=== PATIENT | female | born 1940 | race African-American/Black ===

== ENCOUNTER 2017-01-04 12:56 | Emergency (ER) | payer MEDICARE, OTHER ==
[~2017-01-04] VITALS: Ht 152.4 cm; Wt 94.3 kg
[~2017-01-04 12:56] MED LIST: ACET500T68 PO; ALPR0.5T6 PO; ASPI1CPM PO; ATOR40TA59 PO; BUPR100T11 PO; DOCU-27 PO; DOCU100C5 PO; FAMO-63 PO; FAMO20TA5 PO; FURO-68 PO; FURO40TA4 PO; IBUP-1027 PO; LEVO500T8 PO; METO25TA4 PO; METO50TA2 PO; METR500T4 PO; OMEG-33 PO; OMEG1CAP38 PO; OXYC-323 PO; OXYC1TAB7 PO; PARO40TA3 PO; PARO40TA45 PO; PHEN28OI RC; POTA10TA12 PO; POTA10TA5 PO; RANO500T2 PO; SIME80TA14 PO; SIMV40TA3 PO; SODI30SP NS; mylanta
--- NOTE | 2017-01-04 13:40 | PHYS DOC ---
Past Medical History Past Medical History: A-Fib, Anemia, Anxiety, CAD, CHF, CVA, Depression, GERD, Glaucoma, Hypertension, Vascular Disease Additional Past Medical Histor: CHRONIC PAIN,DYSPHAGIA,APHASIA,RT SIDE PARALYSIS,OSTEOPOROSIS Past Surgical History: Hysterectomy, Other Alcohol Use: None Drug Use: None Adult General Chief Complaint Chief Complaint: MECHANICAL FALL HPI HPI Patient is a 76 year old female brought in by EMS for evaluation of head and neck pain status post fall. Reportedly patient was being transferred from the bed when the staff lost their burrer hand on her and she fell backwards striking her head neck and upper back. She is hurting in her head and neck but says her most significant pain is in her upper T-spine. She cannot speak effectively as she has expressive aphasia and right-sided hemiparesis from prior stroke. She is in no obvious distress with normal vital signs and a c-collar protecting her airway. Review of Systems Review of Systems UNABLE TO OBTAIN DUE TO MEDICAL CONDITION Allergies Allergies Allergies Coded Allergies Type Severity Reaction Last Updated Verified Penicillins Allergy Intermediate 01/09/14 Yes morphine Allergy Intermediate 01/09/14 Yes nitrofurantoin Allergy Intermediate itching, rash 03/12/15 Yes propoxyphene Allergy Intermediate 01/09/14 Yes I S O L A T I O N *CONTACT* Allergy Unknown 03/12/15 Yes Physical Exam Physical Exam Constitutional: Well developed, well nourished, no acute distress, non-toxic appearance. [] HENT: Normocephalic, atraumatic, bilateral external ears normal, oropharynx moist, no oral exudates, nose normal. [] Eyes: PERRLA, EOMI, conjunctiva normal, no discharge. [] Neck: Normal range of motion, + midline C and upper T spine tenderness, supple, no stridor. [] Cardiovascular:Heart rate regular rhythm, no murmur [] Lungs & Thorax: Bilateral breath sounds clear to auscultation [] Abdomen: Bowel sounds normal, soft, no tenderness, no masses, no pulsatile masses. [] Skin: Warm, dry, no erythema, no rash. [] Back: No tenderness, no CVA tenderness. [] Extremities: No tenderness, no cyanosis, no clubbing, ROM intact, no edema. [] Neurologic: Baseline neuro with right-sided hemiparesis and expressive aphasia. Current Patient Data Vital Signs Vital Signs Date Time Temp Pulse Resp B/P (MAP) Pulse Ox O2 Delivery O2 Flow Rate FiO2 01/04/17 13:13 98.6 62 20 160/80 (106) 96 Room Air 98.6 EKG EKG [] Radiology/Procedures Radiology/Procedures Exam performed: CT scan of the head and cervical spine without contrast. Date of Service: 01/04/17 Comparison:CT head and cervical spine from 03/20/11 Clinical History: Patient fell while transferring from the wheelchair to the floor Technique: Helical acquisitions are obtained from the foramen magnum to the vertex without intravenous administration of contrast. In addition helical acquisitions are obtained through the cervical spine. Sagittal and coronal reformatted images are obtained and reviewed. CT scan head findings: There is large area of encephalomalacia, related to large left MCA infarct. This is unchanged since previous study Mild age-related atrophy is seen. Normal rodriguez-white differentiation is maintained. There is no extra axial fluid collection, intraparenchymal hemorrhage or mass lesion. The visualized orbits, paranasal sinuses and the mastoid air cells are clear. The calvarium is intact. Impression: 1. No acute intracranial process detected. 2. Chronic left MCA infarct. End impression CT cervical spine findings: Slight reversal of cervical curvature. The vertebral body heights are maintained. There is narrowing of several intervertebral disc spaces with mild osteophytic spurring intravertebral disc spaces are maintained. There is no harriet or retrolisthesis. There are no fractures. No prevertebral soft tissue swelling is identified. No definite lymphadenopathy or masses are seen within the neck. The visualized thyroid and salivary glands appears preserved. Impression: 1. No acute abnormality seen in the CT scan cervical spine. 2. Spondylotic changes and multilevel disc degenerative changes are redemonstrated PQRS Compliance Statement: One or more of the following individualized dose reduction techniques were utilized for this examination: 1. Automated exposure control 2. Adjustment of the mA and/or kV according to patient size 3. Use of iterative reconstruction technique DICTATED and SIGNED BY: GISEL EMERSON MD DATE: 01/04/17 1348 Indication: Fall and back pain. Axial imaging through the thoracic spine was performed without contrast. Sagittal and coronal reformations were also performed. Curvature and alignment of the thoracic spine is normal. The vertebral body heights are maintained. No acute compression fracture is seen. The paraspinous tissues are unremarkable. Impression: No acute bony abnormality is detected. PQRS Compliance Statement: One or more of the following individualized dose reduction techniques were utilized for this examination: 1. Automated exposure control 2. Adjustment of the mA and/or kV according to patient size 3. Use of iterative reconstruction technique DICTATED and SIGNED BY: TYLER GILLILAND MD DATE: 01/04/17 1357 Course & Med Decision Making Course & Med Decision Making Patient with no obvious dramatic injuries and she is at her baseline such she' ll be discharged in stable condition with PCP follow-up in 1-2 days and come back to the ER sooner with any worsening symptoms. Dragon Disclaimer Dragon Disclaimer This electronic medical record was generated, in whole or in part, using a voice recognition dictation system. Departure Departure Impression: Primary Impression: Cervical strain, acute Additional Impression: CHI (closed head injury) Disposition: 01 HOME, SELF-CARE Condition: GOOD Referrals: KRIS WATKINS MD (PCP) Patient Instructions: Cervical Strain and Sprain with Rehab-SportsMed Problem Qualifiers Primary Impression: Cervical strain, acute Encounter type: initial encounter Qualified Codes: S16.1XXA - Strain of muscle, fascia and tendon at neck level, initial encounter JOSH GUAJARDO DO January 04, 2017 13:40
--- NOTE | 2017-01-04 13:55 | RAD ---
Indication: Fall and back pain. Axial imaging through the thoracic spine was performed without contrast. Sagittal and coronal reformations were also performed. Curvature and alignment of the thoracic spine is normal. The vertebral body heights are maintained. No acute compression fracture is seen. The paraspinous tissues are unremarkable. Impression: No acute bony abnormality is detected. PQRS Compliance Statement: One or more of the following individualized dose reduction techniques were utilized for this examination: 1. Automated exposure control 2. Adjustment of the mA and/or kV according to patient size 3. Use of iterative reconstruction technique
--- NOTE | 2017-01-04 13:58 | RAD ---
Exam performed: CT scan of the head and cervical spine without contrast. Date of Service: 01/04/17 Comparison:CT head and cervical spine from 03/20/11 Clinical History: Patient fell while transferring from the wheelchair to the floor Technique: Helical acquisitions are obtained from the foramen magnum to the vertex without intravenous administration of contrast. In addition helical acquisitions are obtained through the cervical spine. Sagittal and coronal reformatted images are obtained and reviewed. CT scan head findings: There is large area of encephalomalacia, related to large left MCA infarct. This is unchanged since previous study Mild age-related atrophy is seen. Normal rodriguez-white differentiation is maintained. There is no extra axial fluid collection, intraparenchymal hemorrhage or mass lesion. The visualized orbits, paranasal sinuses and the mastoid air cells are clear. The calvarium is intact. Impression: 1. No acute intracranial process detected. 2. Chronic left MCA infarct. End impression CT cervical spine findings: Slight reversal of cervical curvature. The vertebral body heights are maintained. There is narrowing of several intervertebral disc spaces with mild osteophytic spurring intravertebral disc spaces are maintained. There is no harriet or retrolisthesis. There are no fractures. No prevertebral soft tissue swelling is identified. No definite lymphadenopathy or masses are seen within the neck. The visualized thyroid and salivary glands appears preserved. Impression: 1. No acute abnormality seen in the CT scan cervical spine. 2. Spondylotic changes and multilevel disc degenerative changes are redemonstrated PQRS Compliance Statement: One or more of the following individualized dose reduction techniques were utilized for this examination: 1. Automated exposure control 2. Adjustment of the mA and/or kV according to patient size 3. Use of iterative reconstruction technique
--- NOTE | 2017-01-04 14:19 | RAD ---
Indication: Fall with bilateral hip pain. Time of exam 1411 hours. A single AP view of the pelvis was performed. The femoral acetabular alignment is normal bilaterally. Both femoral necks appear intact. The rami are intact. No fractures are seen. Impression: No acute bony abnormality is detected.
--- NOTE | 2017-01-04 14:20 | RAD ---
Exam performed: Bilateral view chest. History: Fall, neck pain. History of hypertension and atrial fibrillation, CHF. Date of service: 01/04/17. Comparison: Single view chest from 06/30/15. Single AP upright view chest findings: Mild cardiomegaly is stable. Pulmonary vascularity is unremarkable. Hazy opacity in the left lung base may be exaggerated due to overlying breast shadow. No focal infiltrates, effusion or pneumothorax is seen. Right shoulder arthroplasty. Impression: Stable mild cardiomegaly with ectatic tortuous aorta. No acute abnormality seen.
[2017-01-04 14:30] VITALS: BP 122/61
== END 2017-01-04 16:07 | disposition home or self-care (01) ==
LOC: ER 12:56
DX: S16.1XXA Strain of muscle, fascia and tendon at neck level, initial encounter (principal); S09.90XA Unspecified injury of head, initial encounter; I48.91 Unspecified atrial fibrillation; F41.9 Anxiety disorder, unspecified; I25.10 Atherosclerotic heart disease of native coronary artery without angina pectoris; I11.0 Hypertensive heart disease with heart failure; I50.9 Heart failure, unspecified; F32.9 Major depressive disorder, single episode, unspecified; K21.9 Gastro-esophageal reflux disease without esophagitis; H40.9 Unspecified glaucoma; I99.9 Unspecified disorder of circulatory system; G89.29 Other chronic pain; G81.91 Hemiplegia, unspecified affecting right dominant side; M81.0 Age-related osteoporosis without current pathological fracture; Z86.73 Personal history of transient ischemic attack (TIA), and cerebral infarction without residual deficits; Z91.041 Radiographic dye allergy status; Z88.8 Allergy status to other drugs, medicaments and biological substances; Z88.0 Allergy status to penicillin; Z88.5 Allergy status to narcotic agent; W01.198A Fall on same level from slipping, tripping and stumbling with subsequent striking against other object, initial encounter; Y93.89 Activity, other specified; Y92.89 Other specified places as the place of occurrence of the external cause; Y99.8 Other external cause status
CPT/HCPCS: 70450; 71010; 72125; 72128; 72170; 99284-25

== ENCOUNTER 2018-05-22 13:53 | Inpatient (IN) | payer MEDICARE, OTHER ==
[~2018-05-22] VITALS: Ht 157.5 cm; Wt 112.9 kg
[~2018-05-22 13:53] MED LIST changes: +DOCU-109 PO; -DOCU-27 PO; +DOCU100C28 PO; -DOCU100C5 PO; +LORA10TA3 PO; -METO50TA2 PO; +METO50TA6 PO; -METR500T4 PO; +METR500T8 PO; +PARO30TA3 PO; -PARO40TA45 PO; +PARO40TA61 PO; -POTA10TA5 PO; +WARF3TAB54 PO
--- NOTE | 2018-05-22 14:16 | EKG ---
[facility] [address] [place] [address] Test Date: 2018-05-22 Test Time: 14:11:28 Pat Name: MARILYN GEE Department: Room: Gender: F [employer]: TW : [id number] Requested By: JOHNNIE FONTANA Order Number: [id number] Reading MD: Nate Cardona Measurements Intervals [place] Rate: 73 P: MS: QRS: 64 QRSD: 80 T: 61 QT: 418 QTc: 464 Interpretive Statements ATRIAL FIBRILLATION. NONSPECIFIC ST-T WAVE CHANGES. Electronically Signed On 05-23-2018 15:21:58 CDT by Nate Cardona
[2018-05-22 14:46] LABS: BILIRUBIN,URINE NEGATIVE (NEG); CLARITY,URINE CLEAR; COLOR,URINE YELLOW; NITRITE,URINE NEGATIVE (NEG); PROTEIN,URINE NEGATIVE (NEG-TRACE); UROBILINOGEN,URINE 0.2 mg/dL (0.2 mg/dL)
--- NOTE | 2018-05-22 14:48 | RAD ---
Single view of the chest. 05/22/2018 2:17 PM Indication: CHEST PAIN AND SHORTNESS OF BREATH X TODAY Comparison: None available Findings: Mildly reduced lung volumes noted. There is borderline cardiomegaly.. No pneumothorax pleural effusion or focal infiltrate is identified. Aortic calcification noted. No acute osseous changes are seen. IMPRESSION: 1. Borderline cardiomegaly. 2. No acute cardiopulmonary process. Electronically signed by: Merrill Polo MD (05/22/2018 2:44 PM) [id number]
[2018-05-22 14:52] LABS: BACTERIA,URINE 0 /HPF (0-FEW); SQUAMOUS EPITHELIAL CELL,UR MOD /LPF; WBC,URINE OCC /HPF (0-4)
[2018-05-22 14:53] LABS: HYALINE CASTS, URINE MODERATE /HPF
[2018-05-22 15:02] LABS: BASO % 0 % (0-3); EOS # 0.1 x10^3/uL (0.0-0.7); EOS % 2 % (0-3); HEMATOCRIT 31.5 % (36.0-47.0); LYMPH # 1.4 x10^3/uL (1.0-4.8); LYMPH % 20 % (24-48); MEAN CORPUSCULAR HEMOGLOBIN 35 pg (25-35); MEAN CORPUSCULAR HGB CONC 35 g/dL (31-37); MEAN CORPUSCULAR VOLUME 100 fL (79-100); MONO # 0.7 x10^3/uL (0.0-1.1); MONO % 11 % (0-9); NEUT # 4.6 x10^3uL (1.8-7.7); NEUT % 67 % (31-73); PLATELET COUNT 211 x10^3/uL (140-400); RED BLOOD COUNT 3.15 x10^6/uL (3.50-5.40); RED CELL DISTRIBUTION WIDTH 14.6 % (11.5-14.5); WHITE BLOOD COUNT 6.9 x10^3/uL (4.0-11.0)
[2018-05-22 15:14] LABS: CALCIUM 9.5 mg/dL (8.5-10.1); CREATININE 1.4 mg/dL (0.6-1.0); GFR 44.1; POTASSIUM 4.6 mmol/L (3.5-5.1)
[2018-05-22 15:50] LABS: PROTHROMBIN TIME PATIENT 19.3 SEC (11.7-14.0)
[2018-05-22 15:53] LABS: D-DIMER < 0.27 ug/mlFEU (0.00-0.50)
--- NOTE | 2018-05-22 16:51 | PHYS DOC ---
Past Medical History Past Medical History: A-Fib, Anemia, Anxiety, CAD, CHF, CVA, Depression, GERD, Glaucoma, Hypertension, Stroke, Vascular Disease Additional Past Medical Histor: CHRONIC PAIN,DYSPHAGIA,APHASIA,RT SIDE PARALYSIS,OSTEOPOROSIS Past Surgical History: Hysterectomy, Other Alcohol Use: None Drug Use: None Adult General Chief Complaint Chief Complaint: SHORTNESS OF BREATH HPI HPI Patient is a 77 year old female who presents with dyspnea and hypoxia. Patient is status post stroke. She lives in a intermediate. She does have some difficulties communicating as sequela of her prior CVA. She does endorse however feeling short of breath over the last 2 days. EMS was called today because the patient had some increased work of breathing. On arrival to the ER, she did have an oxygen saturation of 88-89% on room air. This did easily improve with oxygen per nasal cannula. She also complains of sternal chest pain that is nonradiating. Pain has also been present over the last 2 days. Denies recent fever or cough. She is not normally on oxygen at the intermediate. Review of Systems Review of Systems Constitutional: Denies fever or chills Eyes: Denies change in visual acuity HENT: Denies nasal congestion Respiratory: Denies cough or shortness of breath Cardiovascular: No additional information not addressed in HPI GI: Denies abdominal pain : Denies dysuria Musculoskeletal: Denies back pain Integument: Denies rash Neurologic: Denies headache All other systems were reviewed and found to be within normal limits, except as documented in this note. Current Medications Current Medications Current Medications Medications (Trade) Dose Ordered Sig/Andreas Start Time Stop Time Status Last Admin Dose Admin Albuterol/ Ipratropium (Duoneb) 3 ml 1X ONCE 05/22/18 17:00 05/22/18 17:01 DC Furosemide (Lasix) 40 mg 1X ONCE 05/22/18 17:00 05/22/18 17:01 DC Allergies Allergies Allergies Coded Allergies Type Severity Reaction Last Updated Verified Penicillins Allergy Intermediate 01/09/14 Yes morphine Allergy Intermediate 01/09/14 Yes nitrofurantoin Allergy Intermediate itching, rash 03/12/15 Yes propoxyphene Allergy Intermediate 01/09/14 Yes I S O L A T I O N *CONTACT* Allergy Unknown 03/12/15 Yes Physical Exam Physical Exam Constitutional: Well developed, well nourished, mild dyspnea but no acute distress HENT: Normocephalic, atraumatic, bilateral external ears normal Eyes: PERRLA, EOMI Neck: Normal range of motion, no JVD Cardiovascular:Heart rate regular rhythm, no murmur Lungs & Thorax: Bilateral breath sounds clear to auscultation Abdomen: Bowel sounds normal, soft Skin: Warm, dry Extremities: No edema Neurologic: Alert and oriented X 3 Psychologic: Affect normal Current Patient Data Vital Signs Vital Signs Date Time Temp Pulse Resp B/P (MAP) Pulse Ox O2 Delivery O2 Flow Rate FiO2 05/22/18 16:38 81 30 147/70 (95) 97 Nasal Cannula 1.0 05/22/18 13:53 98.2 98.2 Lab Values Laboratory Tests Test 05/22/18 14:34 05/22/18 14:52 05/22/18 15:35 Urine Collection Type U cath Urine Color Yellow Urine Clarity Clear Urine pH 6.0 Urine Specific [place] 1.015 Urine Protein Negative mg/dL (NEG-TRACE) Urine Glucose (UA) Negative mg/dL (NEG) Urine Ketones (Stick) Negative mg/dL (NEG) Urine Blood Negative (NEG) Urine Nitrite Negative (NEG) Urine Bilirubin Negative (NEG) Urine Urobilinogen Dipstick 0.2 mg/dL (0.2 mg/dL) Urine Leukocyte Esterase Negative (NEG) Urine RBC 1-2 /HPF (0-2) Urine WBC Occ /HPF (0-4) Urine Squamous Epithelial Cells Mod /LPF Urine Bacteria 0 /HPF (0-FEW) Urine Hyaline Casts Moderate /HPF Urine Mucus Slight /LPF White Blood Count 6.9 x10^3/uL (4.0-11.0) Red Blood Count 3.15 x10^6/uL (3.50-5.40) L Hemoglobin 11.0 g/dL (12.0-15.5) L Hematocrit 31.5 % (36.0-47.0) L Mean Corpuscular Volume 100 fL (79-100) Mean Corpuscular Hemoglobin 35 pg (25-35) Mean Corpuscular Hemoglobin Concent 35 g/dL (31-37) Red Cell Distribution Width 14.6 % (11.5-14.5) H Platelet Count 211 x10^3/uL (140-400) Neutrophils (%) (Auto) 67 % (31-73) Lymphocytes (%) (Auto) 20 % (24-48) L Monocytes (%) (Auto) 11 % (0-9) H Eosinophils (%) (Auto) 2 % (0-3) Basophils (%) (Auto) 0 % (0-3) Neutrophils # (Auto) 4.6 x10^3uL (1.8-7.7) Lymphocytes # (Auto) 1.4 x10^3/uL (1.0-4.8) Monocytes # (Auto) 0.7 x10^3/uL (0.0-1.1) Eosinophils # (Auto) 0.1 x10^3/uL (0.0-0.7) Basophils # (Auto) 0.0 x10^3/uL (0.0-0.2) Sodium Level 141 mmol/L (136-145) Potassium Level 4.6 mmol/L (3.5-5.1) Chloride Level 103 mmol/L (98-107) Carbon Dioxide Level 29 mmol/L (21-32) Anion Gap 9 (6-14) Blood Urea Nitrogen 20 mg/dL (7-20) Creatinine 1.4 mg/dL (0.6-1.0) H Estimated GFR (Cockcroft-Gault) 44.1 Glucose Level 102 mg/dL (70-99) H Lactic Acid Level 1.1 mmol/L (0.4-2.0) Calcium Level 9.5 mg/dL (8.5-10.1) Troponin I Quantitative < 0.017 ng/mL (0.000-0.055) KN-Iva-Y-Type Natriuretic Peptide 2849 pg/mL (0-449) H Procalcitonin < 0.10 ng/mL (0.00-0.10) Prothrombin Time 19.3 SEC (11.7-14.0) H Prothrombin Time INR 1.7 (0.8-1.1) H D-Dimer ([place]) < 0.27 ug/mlFEU Laboratory Tests 05/22/18 14:52 Laboratory Tests 05/22/18 14:52 EKG EKG No STEMI Interpretation Time: 14:15 Radiology/Procedures Radiology/Procedures No acute cardiopulmonary process Course & Med Decision Making Course & Med Decision Making Pertinent Labs and Imaging studies reviewed. (See chart for details) Patient is evaluated in the emergency department for chest pain and some dyspnea. She did have some mild hypoxia on arrival to the ER. Her workup is positive for elevated creatinine which seems to be at baseline for her. She also had elevated BNP which is higher than the most recent available in the medical record although it was a couple years earlier. She was not clinically fluid overloaded on physical exam. Plan today will be to admit to the hospitalist service and will consult cardiology and pulmonology for her symptoms. Will order serial troponins and EKGs to rule out cardiac ischemia. Her initial EKG is atrial fibrillation with no acute ST elevations or depressions. Patient also has hx of obstructive lung disease. In the ER, duoneb was given. Lasix 40 mg IV. Dragon Disclaimer Dragon Disclaimer This electronic medical record was generated, in whole or in part, using a voice recognition dictation system. Departure Departure Referrals: KRIS WATKINS MD (PCP) JOHNNIE FONTANA DO May 22, 2018 16:51
[2018-05-22] MEDS ORDERED: FUROSEMIDE 40 MG/4 ML VIAL. IVP ONE (17:00)
[2018-05-22] MEDS ORDERED: IPRATRPIUM/ALBUTEROL 0.5/2.5MG 3 ML NEBU. NEB ONE ×2 (17:00→20:15)
[2018-05-22] MEDS ORDERED: NITROGLYCERIN SUBLINGUAL 0.4 MG BOTTLE OF 25. SL PRN (17:15)
[2018-05-22] MEDS ORDERED: ACETAMINOPHEN 325 MG TABLET. PO PRN (17:15)
--- NOTE | 2018-05-22 18:13 | PDOC1 ---
History and Physical Date of Admission Date of Admission DATE: 05/22/18 TIME: 17:52 History of Present Illness History of Present Illness Patient is a 77 year old female who presents to the ER with dyspnea and hypoxia. Patient has had a stroke in the past and currently lives in a retirement. Patient has difficulty communicating due to her stroke. Patient states she has chest pain along with headache. Patient has pain on entire right arm and her left hand and forearm. Patient says pain comes and goes and feels like she will peak soon. Patient states pain symptoms began 3 days ago. Patient denies any recent sick contacts. Patient uses a wheelchair to get around. Patient has difficulty moving her right arm due to stroke. Past Medical History Cardiovascular: AFIB, CHF, HTN, Hyperlipidemia, Other CENTRAL NERVOUS SYSTEM: CVA GI: GERD, Other Hepatobiliary: No pertinent hx Psych: Anxiety Musculoskeletal: Osteoarthritis, Other Rheumatologic: No pertinent hx Infectious disease: No pertinent hx Renal/: No pertinent hx Endocrine: No pertinent hx, Osteoporosis Past Surgical History Past Surgical History: Appendectomy, Cholecystectomy, Hysterectomy, Other Family History Family History: Cancer, Coronary Artery Disease, Heart Disease Social History ALCOHOL: none Drugs: None Current Problem List Problem List Problems Medical Problems: (1) Hypoxia Status: Acute Current Medications Current Medications Current Medications Furosemide (Lasix) 40 mg 1X ONCE IVP Last administered on 05/22/18at 17:48; Start 05/22/18 at 17:00; Stop 05/22/18 at 17:01; Status DC Albuterol/ Ipratropium (Duoneb) 3 ml 1X ONCE NEB ; Start 05/22/18 at 17:00; Stop 05/22/18 at 17:01; Status DC Acetaminophen (Tylenol) 650 mg PRN Q4HRS PRN PO FEVER; Start 05/22/18 at 17:15 ; Stop 05/23/18 at 17:14 Nitroglycerin (Nitrostat) 0.4 mg PRN Q5MIN PRN SL CHEST PAIN; Start 05/22/18 at 17:15; Stop 05/23/18 at 17:14 Active Scripts Active Reported Percocet 5-325 Mg Tablet (Oxycodone/Acetaminophen) 1 Each Tablet 1 Tab PO PRN Q4HRS Coumadin (Warfarin Sodium) 3 Mg Tablet 1 Tab PO DAILY Paroxetine Hcl 30 Mg Tablet 1 Tab PO DAILY Loratadine 10 Mg Tablet 1 Tab PO DAILY Metronidazole 500 Mg Tablet 1 Tab PO TID Levofloxacin 500 Mg Tablet 1 Tab PO DAILY Simethicone 80 Mg Tab.chew 80 Mg PO BID Acetaminophen 500 Mg Tablet 1 Tab PO PRN BID Ranexa (Ranolazine) 500 Mg Tab.er.12h 1 Tab PO BID [place] 3 Fish Oil Softgel ([place]-3 Fatty Acids/Fish Oil) 1 Each Capsule.dr 1 Each PO TID Metoprolol Tartrate 25 Mg Tablet 1 Tab PO BID Klor-Con M10 (Potassium Chloride) 10 Meq Tab.er.prt 1 Tab PO DAILY Furosemide 40 Mg Tablet 1 Tab PO DAILY Famotidine 20 Mg Tablet 20 Mg PO HS Docusate Sodium 100 Mg Capsule 1 Cap PO DAILY Bupropion Hcl 100 Mg Tablet 100 Mg PO BID Atorvastatin Calcium 40 Mg Tablet 1 Tab PO QHS Alprazolam 0.5 Mg Tablet 1 Tab PO TID PRN PRN Allergies Allergies: Coded Allergies: Penicillins (Verified Allergy, Intermediate, 01/09/14) morphine (Verified Allergy, Intermediate, 01/09/14) nitrofurantoin (Verified Allergy, Intermediate, itching, rash, 03/12/15) propoxyphene (Verified Allergy, Intermediate, 01/09/14) I S O L A T I O N *CONTACT* (Verified Allergy, Unknown, 03/12/15) mrsa + ROS HEENT: YES: [place] Respiratory: YES: Shortness of breath Musculoskeletal: Yes Muscle Pain Physical Exam Physical Exam psych somehwat depressed neuro aphasic weak bilaterally 1+ non pitting edema General: Alert, Oriented X3, mild distress HEENT: PERRLA, EOMI Lungs: Clear to auscultation Heart: no murmurs Abdomen: Normal bowel sounds, Soft Psych/Mental Status: Mental status NL, Mood NL Vitals Vitals Vital Signs Date Time Temp Pulse Resp B/P (MAP) Pulse Ox O2 Delivery O2 Flow Rate FiO2 05/22/18 16:38 81 30 147/70 (95) 97 Nasal Cannula 1.0 05/22/18 13:53 98.2 98.2 Labs Labs Laboratory Tests Test 05/22/18 14:34 05/22/18 14:52 05/22/18 15:35 Urine Collection Type U cath Urine Color Yellow Urine Clarity Clear Urine pH 6.0 Urine Specific [place] 1.015 Urine Protein Negative mg/dL (NEG-TRACE) Urine Glucose (UA) Negative mg/dL (NEG) Urine Ketones (Stick) Negative mg/dL (NEG) Urine Blood Negative (NEG) Urine Nitrite Negative (NEG) Urine Bilirubin Negative (NEG) Urine Urobilinogen Dipstick 0.2 mg/dL (0.2 mg/dL) Urine Leukocyte Esterase Negative (NEG) Urine RBC 1-2 /HPF (0-2) Urine WBC Occ /HPF (0-4) Urine Squamous Epithelial Cells Mod /LPF Urine Bacteria 0 /HPF (0-FEW) Urine Hyaline Casts Moderate /HPF Urine Mucus Slight /LPF White Blood Count 6.9 x10^3/uL (4.0-11.0) Red Blood Count 3.15 x10^6/uL (3.50-5.40) Hemoglobin 11.0 g/dL (12.0-15.5) Hematocrit 31.5 % (36.0-47.0) Mean Corpuscular Volume 100 fL (79-100) Mean Corpuscular Hemoglobin 35 pg (25-35) Mean Corpuscular Hemoglobin Concent 35 g/dL (31-37) Red Cell Distribution Width 14.6 % (11.5-14.5) Platelet Count 211 x10^3/uL (140-400) Neutrophils (%) (Auto) 67 % (31-73) Lymphocytes (%) (Auto) 20 % (24-48) Monocytes (%) (Auto) 11 % (0-9) Eosinophils (%) (Auto) 2 % (0-3) Basophils (%) (Auto) 0 % (0-3) Neutrophils # (Auto) 4.6 x10^3uL (1.8-7.7) Lymphocytes # (Auto) 1.4 x10^3/uL (1.0-4.8) Monocytes # (Auto) 0.7 x10^3/uL (0.0-1.1) Eosinophils # (Auto) 0.1 x10^3/uL (0.0-0.7) Basophils # (Auto) 0.0 x10^3/uL (0.0-0.2) Sodium Level 141 mmol/L (136-145) Potassium Level 4.6 mmol/L (3.5-5.1) Chloride Level 103 mmol/L (98-107) Carbon Dioxide Level 29 mmol/L (21-32) Anion Gap 9 (6-14) Blood Urea Nitrogen 20 mg/dL (7-20) Creatinine 1.4 mg/dL (0.6-1.0) Estimated GFR (Cockcroft-Gault) 44.1 Glucose Level 102 mg/dL (70-99) Lactic Acid Level 1.1 mmol/L (0.4-2.0) Calcium Level 9.5 mg/dL (8.5-10.1) Troponin I Quantitative < 0.017 ng/mL (0.000-0.055) UX-Rtg-Q-Type Natriuretic Peptide 2849 pg/mL (0-449) Procalcitonin < 0.10 ng/mL (0.00-0.10) Prothrombin Time 19.3 SEC (11.7-14.0) Prothromb Time International Ratio 1.7 (0.8-1.1) D-Dimer ([place]) < 0.27 ug/mlFEU Laboratory Tests Test 05/22/18 14:34 05/22/18 14:52 05/22/18 15:35 Urine Collection Type U cath Urine Color Yellow Urine Clarity Clear Urine pH 6.0 Urine Specific [place] 1.015 Urine Protein Negative mg/dL (NEG-TRACE) Urine Glucose (UA) Negative mg/dL (NEG) Urine Ketones (Stick) Negative mg/dL (NEG) Urine Blood Negative (NEG) Urine Nitrite Negative (NEG) Urine Bilirubin Negative (NEG) Urine Urobilinogen Dipstick 0.2 mg/dL (0.2 mg/dL) Urine Leukocyte Esterase Negative (NEG) Urine RBC 1-2 /HPF (0-2) Urine WBC Occ /HPF (0-4) Urine Squamous Epithelial Cells Mod /LPF Urine Bacteria 0 /HPF (0-FEW) Urine Hyaline Casts Moderate /HPF Urine Mucus Slight /LPF White Blood Count 6.9 x10^3/uL (4.0-11.0) Red Blood Count 3.15 x10^6/uL (3.50-5.40) Hemoglobin 11.0 g/dL (12.0-15.5) Hematocrit 31.5 % (36.0-47.0) Mean Corpuscular Volume 100 fL (79-100) Mean Corpuscular Hemoglobin 35 pg (25-35) Mean Corpuscular Hemoglobin Concent 35 g/dL (31-37) Red Cell Distribution Width 14.6 % (11.5-14.5) Platelet Count 211 x10^3/uL (140-400) Neutrophils (%) (Auto) 67 % (31-73) Lymphocytes (%) (Auto) 20 % (24-48) Monocytes (%) (Auto) 11 % (0-9) Eosinophils (%) (Auto) 2 % (0-3) Basophils (%) (Auto) 0 % (0-3) Neutrophils # (Auto) 4.6 x10^3uL (1.8-7.7) Lymphocytes # (Auto) 1.4 x10^3/uL (1.0-4.8) Monocytes # (Auto) 0.7 x10^3/uL (0.0-1.1) Eosinophils # (Auto) 0.1 x10^3/uL (0.0-0.7) Basophils # (Auto) 0.0 x10^3/uL (0.0-0.2) Sodium Level 141 mmol/L (136-145) Potassium Level 4.6 mmol/L (3.5-5.1) Chloride Level 103 mmol/L (98-107) Carbon Dioxide Level 29 mmol/L (21-32) Anion Gap 9 (6-14) Blood Urea Nitrogen 20 mg/dL (7-20) Creatinine 1.4 mg/dL (0.6-1.0) Estimated GFR (Cockcroft-Gault) 44.1 Glucose Level 102 mg/dL (70-99) Lactic Acid Level 1.1 mmol/L (0.4-2.0) Calcium Level 9.5 mg/dL (8.5-10.1) Troponin I Quantitative < 0.017 ng/mL (0.000-0.055) CA-Dwc-F-Type Natriuretic Peptide 2849 pg/mL (0-449) Procalcitonin < 0.10 ng/mL (0.00-0.10) Prothrombin Time 19.3 SEC (11.7-14.0) Prothromb Time International Ratio 1.7 (0.8-1.1) D-Dimer ([place]) < 0.27 ug/mlFEU VTE Prophylaxis Ordered VTE Prophylaxis Devices: Yes VTE Pharmacological Prophylaxi: Yes Assessment/Plan Assessment/Plan #Acute hypoxic resp failure #Chronic systolic heart failure #Acute bronchitis #HTN #CVD #Headache Plan - i will give her tylenol for her headache - o2 likely atelectasis - i doubt it is significant heart failure - on treatment for brnchitis - see orders CHRISTIANO WALLACE MD May 22, 2018 18:13
[2018-05-22 18:45] VITALS: BP 116/65
[2018-05-22] MEDS ORDERED: oxyCODONE/APAP 5/325 1 TAB TABLET PO PRN (20:15)
[2018-05-22] MEDS ORDERED: ALPRAZolam 0.5 MG TABLET PO PRN (20:15)
[2018-05-22] MEDS ORDERED: ACETAMINOPHEN 500 MG TABLET PO PRN (20:15)
[2018-05-22] MEDS: buPROPion 100 MG TABLET PO SCH (20:48)
[2018-05-22] MEDS: OMEGA-3 FATTY ACIDS/FISH OIL 1,000 MG CAPSULE. PO SCH (20:48)
[2018-05-22] MEDS: METOPROLOL TART IMMED RELEASE 25 MG TABLET. PO SCH (20:49)
[2018-05-22] MEDS: SIMETHICONE 80 MG TAB.CHEW PO SCH (20:49)
[2018-05-22] MEDS: RANOLAZINE 500 MG TAB.ER.12H PO SCH (20:49)
[2018-05-22] MEDS ORDERED: ATORVASTATIN CALCIUM 40 MG TABLET. PO SCH (21:00)
[2018-05-22] MEDS ORDERED: FAMOTIDINE 20 MG TABLET. PO SCH (21:00)
[2018-05-22] MEDS ORDERED: METRONIDAZOLE PO SCH (21:00)
[2018-05-22] MEDS ORDERED: WARFARIN 3 MG TABLET. PO SCH (21:00)
[2018-05-22 23:00] VITALS: BP 122/76
[2018-05-23 03:00] VITALS: BP 108/67
[2018-05-23 07:00] VITALS: BP 145/59
[2018-05-23 07:14] LABS: BASO % 0 % (0-3); EOS # 0.1 x10^3/uL (0.0-0.7); EOS % 2 % (0-3); HEMATOCRIT 30.5 % (36.0-47.0); HEMOGLOBIN 10.5 g/dL (12.0-15.5); LYMPH # 1.2 x10^3/uL (1.0-4.8); LYMPH % 20 % (24-48); MEAN CORPUSCULAR HEMOGLOBIN 34 pg (25-35); MEAN CORPUSCULAR HGB CONC 34 g/dL (31-37); MEAN CORPUSCULAR VOLUME 100 fL (79-100); MONO # 0.7 x10^3/uL (0.0-1.1); MONO % 11 % (0-9); NEUT # 4.2 x10^3uL (1.8-7.7); NEUT % 68 % (31-73); PLATELET COUNT 190 x10^3/uL (140-400); RED BLOOD COUNT 3.04 x10^6/uL (3.50-5.40); RED CELL DISTRIBUTION WIDTH 14.5 % (11.5-14.5); WHITE BLOOD COUNT 6.2 x10^3/uL (4.0-11.0)
[2018-05-23 07:24] LABS: CALCIUM 9.1 mg/dL (8.5-10.1); CREATININE 1.6 mg/dL (0.6-1.0); GFR 37.8; POTASSIUM 4.1 mmol/L (3.5-5.1)
[2018-05-23] MEDS ORDERED: FUROSEMIDE 40 MG TABLET. PO SCH (09:00)
[2018-05-23] MEDS ORDERED: POTASSIUM CHLORIDE 10 MEQ TABLET.ER. PO SCH (09:00)
[2018-05-23] MEDS ORDERED: CETIRIZINE HCL 10 MG TABLET. PO SCH (09:00)
[2018-05-23] MEDS ORDERED: LEVOFLOXACIN PO SCH (09:00)
[2018-05-23] MEDS ORDERED: PARoxetine 10 MG TABLET PO SCH (09:00)
[2018-05-23] MEDS ORDERED: DOCUSATE SODIUM 100 MG CAPSULE. PO SCH (09:00)
[2018-05-23] MEDS ORDERED: guaiFENesin DM 200MG/20MG 10 ML SYRUP PO PRN (09:30)
[2018-05-23] MEDS ORDERED: ACETAMINOPHEN/CODEINE 300/30MG TABLET. PO PRN (09:30)
[2018-05-23] MEDS ORDERED: IPRATRPIUM/ALBUTEROL 0.5/2.5MG 3 ML NEBU. NEB ONE (09:30)
[2018-05-23] MEDS ORDERED: ACETAMINOPHEN 500 MG TABLET PO PRN (09:30)
--- NOTE | 2018-05-23 09:49 | PDOC3 ---
Discharge Summary Visit Information Date of Admission: May 22, 2018 Date of Discharge: May 23, 2018 Admitting Diagnosis Comment: Transient hypoxia sec to atelectasis Normal CXR SNU resident HX CVA with rt residual weakness Final Diagnosis Problems Medical Problems: (1) Hypoxia Status: Acute Brief Hospital Course Allergies Allergies Coded Allergies Type Severity Reaction Last Updated Verified Penicillins Allergy Intermediate 01/09/14 Yes morphine Allergy Intermediate 01/09/14 Yes nitrofurantoin Allergy Intermediate itching, rash 03/12/15 Yes propoxyphene Allergy Intermediate 01/09/14 Yes I S O L A T I O N *CONTACT* Allergy Unknown 03/12/15 Yes Vital Signs Vital Signs Date Time Temp Pulse Resp B/P (MAP) Pulse Ox O2 Delivery O2 Flow Rate FiO2 05/23/18 07:00 96.3 68 16 145/59 (87) 96 Nasal Cannula 96.3 05/22/18 20:14 1.0 Lab Results Laboratory Tests Test 05/22/18 14:34 05/22/18 14:52 05/22/18 15:35 05/22/18 20:15 Urine Collection Type U cath Urine Color Yellow Urine Clarity Clear Urine pH 6.0 Urine Specific [place] 1.015 Urine Protein Negative mg/dL (NEG-TRACE) Urine Glucose (UA) Negative mg/dL (NEG) Urine Ketones (Stick) Negative mg/dL (NEG) Urine Blood Negative (NEG) Urine Nitrite Negative (NEG) Urine Bilirubin Negative (NEG) Urine Urobilinogen Dipstick 0.2 mg/dL (0.2 mg/dL) Urine Leukocyte Esterase Negative (NEG) Urine RBC 1-2 /HPF (0-2) Urine WBC Occ /HPF (0-4) Urine Squamous Epithelial Cells Mod /LPF Urine Bacteria 0 /HPF (0-FEW) Urine Hyaline Casts Moderate /HPF Urine Mucus Slight /LPF White Blood Count 6.9 x10^3/uL (4.0-11.0) Red Blood Count 3.15 x10^6/uL (3.50-5.40) Hemoglobin 11.0 g/dL (12.0-15.5) Hematocrit 31.5 % (36.0-47.0) Mean Corpuscular Volume 100 fL (79-100) Mean Corpuscular Hemoglobin 35 pg (25-35) Mean Corpuscular Hemoglobin Concent 35 g/dL (31-37) Red Cell Distribution Width 14.6 % (11.5-14.5) Platelet Count 211 x10^3/uL (140-400) Neutrophils (%) (Auto) 67 % (31-73) Lymphocytes (%) (Auto) 20 % (24-48) Monocytes (%) (Auto) 11 % (0-9) Eosinophils (%) (Auto) 2 % (0-3) Basophils (%) (Auto) 0 % (0-3) Neutrophils # (Auto) 4.6 x10^3uL (1.8-7.7) Lymphocytes # (Auto) 1.4 x10^3/uL (1.0-4.8) Monocytes # (Auto) 0.7 x10^3/uL (0.0-1.1) Eosinophils # (Auto) 0.1 x10^3/uL (0.0-0.7) Basophils # (Auto) 0.0 x10^3/uL (0.0-0.2) Sodium Level 141 mmol/L (136-145) Potassium Level 4.6 mmol/L (3.5-5.1) Chloride Level 103 mmol/L (98-107) Carbon Dioxide Level 29 mmol/L (21-32) Anion Gap 9 (6-14) Blood Urea Nitrogen 20 mg/dL (7-20) Creatinine 1.4 mg/dL (0.6-1.0) Estimated GFR (Cockcroft-Gault) 44.1 Glucose Level 102 mg/dL (70-99) Lactic Acid Level 1.1 mmol/L (0.4-2.0) Calcium Level 9.5 mg/dL (8.5-10.1) Troponin I Quantitative < 0.017 ng/mL (0.000-0.055) < 0.017 ng/mL (0.000-0.055) FQ-Egb-F-Type Natriuretic Peptide 2849 pg/mL (0-449) Procalcitonin < 0.10 ng/mL (0.00-0.10) Prothrombin Time 19.3 SEC (11.7-14.0) Prothromb Time International Ratio 1.7 (0.8-1.1) D-Dimer ([place]) < 0.27 ug/mlFEU Test 9/25/18 23:03 05/23/18 05:32 05/23/18 06:32 Troponin I Quantitative < 0.017 ng/mL (0.000-0.055) White Blood Count 6.2 x10^3/uL (4.0-11.0) Red Blood Count 3.04 x10^6/uL (3.50-5.40) Hemoglobin 10.5 g/dL (12.0-15.5) Hematocrit 30.5 % (36.0-47.0) Mean Corpuscular Volume 100 fL (79-100) Mean Corpuscular Hemoglobin 34 pg (25-35) Mean Corpuscular Hemoglobin Concent 34 g/dL (31-37) Red Cell Distribution Width 14.5 % (11.5-14.5) Platelet Count 190 x10^3/uL (140-400) Neutrophils (%) (Auto) 68 % (31-73) Lymphocytes (%) (Auto) 20 % (24-48) Monocytes (%) (Auto) 11 % (0-9) Eosinophils (%) (Auto) 2 % (0-3) Basophils (%) (Auto) 0 % (0-3) Neutrophils # (Auto) 4.2 x10^3uL (1.8-7.7) Lymphocytes # (Auto) 1.2 x10^3/uL (1.0-4.8) Monocytes # (Auto) 0.7 x10^3/uL (0.0-1.1) Eosinophils # (Auto) 0.1 x10^3/uL (0.0-0.7) Basophils # (Auto) 0.0 x10^3/uL (0.0-0.2) Sodium Level 142 mmol/L (136-145) Potassium Level 4.1 mmol/L (3.5-5.1) Chloride Level 105 mmol/L (98-107) Carbon Dioxide Level 31 mmol/L (21-32) Anion Gap 6 (6-14) Blood Urea Nitrogen 21 mg/dL (7-20) Creatinine 1.6 mg/dL (0.6-1.0) Estimated GFR (Cockcroft-Gault) 37.8 Glucose Level 109 mg/dL (70-99) Calcium Level 9.1 mg/dL (8.5-10.1) Laboratory Tests Test 05/22/18 14:34 05/22/18 14:52 05/22/18 15:35 05/22/18 20:15 Urine Collection Type U cath Urine Color Yellow Urine Clarity Clear Urine pH 6.0 Urine Specific [place] 1.015 Urine Protein Negative mg/dL (NEG-TRACE) Urine Glucose (UA) Negative mg/dL (NEG) Urine Ketones (Stick) Negative mg/dL (NEG) Urine Blood Negative (NEG) Urine Nitrite Negative (NEG) Urine Bilirubin Negative (NEG) Urine Urobilinogen Dipstick 0.2 mg/dL (0.2 mg/dL) Urine Leukocyte Esterase Negative (NEG) Urine RBC 1-2 /HPF (0-2) Urine WBC Occ /HPF (0-4) Urine Squamous Epithelial Cells Mod /LPF Urine Bacteria 0 /HPF (0-FEW) Urine Hyaline Casts Moderate /HPF Urine Mucus Slight /LPF White Blood Count 6.9 x10^3/uL (4.0-11.0) Red Blood Count 3.15 x10^6/uL (3.50-5.40) Hemoglobin 11.0 g/dL (12.0-15.5) Hematocrit 31.5 % (36.0-47.0) Mean Corpuscular Volume 100 fL (79-100) Mean Corpuscular Hemoglobin 35 pg (25-35) Mean Corpuscular Hemoglobin Concent 35 g/dL (31-37) Red Cell Distribution Width 14.6 % (11.5-14.5) Platelet Count 211 x10^3/uL (140-400) Neutrophils (%) (Auto) 67 % (31-73) Lymphocytes (%) (Auto) 20 % (24-48) Monocytes (%) (Auto) 11 % (0-9) Eosinophils (%) (Auto) 2 % (0-3) Basophils (%) (Auto) 0 % (0-3) Neutrophils # (Auto) 4.6 x10^3uL (1.8-7.7) Lymphocytes # (Auto) 1.4 x10^3/uL (1.0-4.8) Monocytes # (Auto) 0.7 x10^3/uL (0.0-1.1) Eosinophils # (Auto) 0.1 x10^3/uL (0.0-0.7) Basophils # (Auto) 0.0 x10^3/uL (0.0-0.2) Sodium Level 141 mmol/L (136-145) Potassium Level 4.6 mmol/L (3.5-5.1) Chloride Level 103 mmol/L (98-107) Carbon Dioxide Level 29 mmol/L (21-32) Anion Gap 9 (6-14) Blood Urea Nitrogen 20 mg/dL (7-20) Creatinine 1.4 mg/dL (0.6-1.0) Estimated GFR (Cockcroft-Gault) 44.1 Glucose Level 102 mg/dL (70-99) Lactic Acid Level 1.1 mmol/L (0.4-2.0) Calcium Level 9.5 mg/dL (8.5-10.1) Troponin I Quantitative < 0.017 ng/mL (0.000-0.055) < 0.017 ng/mL (0.000-0.055) UX-Jsg-C-Type Natriuretic Peptide 2849 pg/mL (0-449) Procalcitonin < 0.10 ng/mL (0.00-0.10) Prothrombin Time 19.3 SEC (11.7-14.0) Prothromb Time International Ratio 1.7 (0.8-1.1) D-Dimer ([place]) < 0.27 ug/mlFEU Test 05/22/18 23:03 05/23/18 05:32 05/23/18 06:32 Troponin I Quantitative < 0.017 ng/mL (0.000-0.055) White Blood Count 6.2 x10^3/uL (4.0-11.0) Red Blood Count 3.04 x10^6/uL (3.50-5.40) Hemoglobin 10.5 g/dL (12.0-15.5) Hematocrit 30.5 % (36.0-47.0) Mean Corpuscular Volume 100 fL (79-100) Mean Corpuscular Hemoglobin 34 pg (25-35) Mean Corpuscular Hemoglobin Concent 34 g/dL (31-37) Red Cell Distribution Width 14.5 % (11.5-14.5) Platelet Count 190 x10^3/uL (140-400) Neutrophils (%) (Auto) 68 % (31-73) Lymphocytes (%) (Auto) 20 % (24-48) Monocytes (%) (Auto) 11 % (0-9) Eosinophils (%) (Auto) 2 % (0-3) Basophils (%) (Auto) 0 % (0-3) Neutrophils # (Auto) 4.2 x10^3uL (1.8-7.7) Lymphocytes # (Auto) 1.2 x10^3/uL (1.0-4.8) Monocytes # (Auto) 0.7 x10^3/uL (0.0-1.1) Eosinophils # (Auto) 0.1 x10^3/uL (0.0-0.7) Basophils # (Auto) 0.0 x10^3/uL (0.0-0.2) Sodium Level 142 mmol/L (136-145) Potassium Level 4.1 mmol/L (3.5-5.1) Chloride Level 105 mmol/L (98-107) Carbon Dioxide Level 31 mmol/L (21-32) Anion Gap 6 (6-14) Blood Urea Nitrogen 21 mg/dL (7-20) Creatinine 1.6 mg/dL (0.6-1.0) Estimated GFR (Cockcroft-Gault) 37.8 Glucose Level 109 mg/dL (70-99) Calcium Level 9.1 mg/dL (8.5-10.1) Brief Hospital Course Ms. Manzo is a 77 old SNU resident with hx CVA and Rt residual weakness admitted bec of transient hypoxia at SNU, CXR unimpressive, Overnight course UR < They can do 2 LNC at SNU, PUlmo and cards consults not needed. PT back to baseline, Needs IS - hypoxia likely atelectasis, DNR OBS stay Discharge Information Condition at Discharge: Improved, Stable Disposition/Orders: Other (SNU) Scheduled Acetaminophen (Acetaminophen) 500 Mg Tablet, 1 TAB PO PRN BID, #60 Ref 1 ( Reported) Entered as Reported by: RODOLFO LORENZO on 03/11/15701 Last Action: Continued on 05/22/182007 by CHRISTIANO WALLACE MD Atorvastatin Calcium (Atorvastatin Calcium) 40 Mg Tablet, 1 TAB PO QHS, #90 Ref 3 (Reported) Entered as Reported by: RODOLFO LORENZO on 03/11/15701 Last Action: Continued on 05/22/182007 by CHRISTIANO WALLACE MD Bupropion Hcl (Bupropion Hcl) 100 Mg Tablet, 100 MG PO BID, (Reported) Entered as Reported by: RODOLFO LORENZO on 03/11/15701 Last Action: Continued on 05/22/182007 by CHRISTIANO WALLACE MD Docusate Sodium (Docusate Sodium) 100 Mg Capsule, 1 CAP PO DAILY, #30 (Reported) Entered as Reported by: RODOLFO LORENZO on 03/11/15701 Last Action: Continued on 05/22/182007 by CHRISTIANO WALLACE MD Famotidine (Famotidine) 20 Mg Tablet, 20 MG PO HS, (Reported) Entered as Reported by: RODOLFO LORENZO on 03/11/15701 Last Action: Continued on 05/22/182007 by CHRISTIANO WALLACE MD Furosemide (Furosemide) 40 Mg Tablet, 1 TAB PO DAILY, #30 Ref 5 (Reported) Entered as Reported by: RODOLFO LORENZO on 03/11/15701 Last Action: Continued on 05/22/182007 by CHRISTIANO WALLACE MD Levofloxacin (Levofloxacin) 500 Mg Tablet, 1 TAB PO DAILY, (Reported) Entered as Reported by: JB LUDWIG on 07/03/15 1031 Last Action: Converted on 05/22/182007 by CHRISTIANO WALLACE MD Loratadine (Loratadine) 10 Mg Tablet, 1 TAB PO DAILY, #30 Ref 5 (Reported) Entered as Reported by: Aurora Simmons on 01/28/172113 Last Action: Converted on 05/22/182007 by CHRISTIANO WALLACE MD Metoprolol Tartrate (Metoprolol Tartrate) 25 Mg Tablet, 1 TAB PO BID, #180 Ref 1 (Reported) Entered as Reported by: RODOLFO LORENZO on 03/11/15701 Last Action: Continued on 05/22/182007 by CHRISTIANO WALLACE MD Metronidazole (Metronidazole) 500 Mg Tablet, 1 TAB PO TID, (Reported) Entered as Reported by: JB LUDWIG on 07/03/15 1031 Last Action: Converted on 05/22/182007 by CHRISTIANO WALLACE MD [place]-3 Fatty Acids/Fish Oil ([place] 3 Fish Oil Softgel) 1 Each Capsule.dr, 1 EACH PO TID, (Reported) Entered as Reported by: RODOLFO LORENZO on 03/11/15701 Last Action: Converted on 05/22/182007 by CHRISTIANO WALLACE MD Oxycodone/Apap 5-325 (Percocet 5-325 Mg Tablet) 1 Each Tablet, 1 TAB PO PRN Q4HRS, Ref 0 (Reported) Entered as Reported by: Aurora Simmons on 01/28/172123 Last Action: Continued on 05/22/182007 by CHRISTIANO WALLACE MD Paroxetine Hcl (Paroxetine Hcl) 30 Mg Tablet, 1 TAB PO DAILY, #30 Ref 2 ( Reported) Entered as Reported by: Aurora Simmons on 01/28/172115 Last Action: Converted on 05/22/182007 by CHRISTIANO WALLACE MD Potassium Chloride (Klor-Con M10) 10 Meq Tab.er.prt, 1 TAB PO DAILY, #30 Ref 5 ( Reported) Entered as Reported by: RODOLFO LORENZO on 03/11/15701 Last Action: Continued on 05/22/182007 by CHRISTIANO WALLACE MD Ranolazine (Ranexa) 500 Mg Tab.er.12h, 1 TAB PO BID, #60 Ref 3 (Reported) Entered as Reported by: RODOLFO LORENZO on 03/11/15701 Last Action: Continued on 05/22/182007 by CHRISTIANO WALLACE MD Simethicone (Simethicone) 80 Mg Tab.chew, 80 MG PO BID for GAS / BLOATING, ( Reported) Entered as Reported by: RODOLFO LORENZO on 03/11/15701 Last Action: Continued on 05/22/182007 by CHRISTIANO WALLACE MD Warfarin Sodium (Coumadin) 3 Mg Tablet, 1 TAB PO DAILY, #30 Ref 5 (Reported) Entered as Reported by: Aurora Simmons on 01/28/172123 Last Action: Converted on 05/22/182007 by CHRISTIANO WALLACE MD Scheduled PRN Alprazolam (Alprazolam) 0.5 Mg Tablet, 1 TAB PO TID PRN PRN for ANXIETY / AGITATION, #90 (Reported) Entered as Reported by: RODOLFO LORENZO on 03/11/15701 Last Action: Continued on 05/22/182007 by MD ALBERTA RICHTER CHERRIE Y MD May 23, 2018 09:49
--- NOTE | 2018-05-23 09:52 | DISCH ---
DISCHARGE DISCHARGE INFORMATION: FINAL DIAGNOSIS Problems Medical Problems: (1) Hypoxia Status: Acute CONDITION ON DISCHARGE: Stable CODE STATUS: Code Status: DNR/DNI [facility]: SNF STAY <30 DAYS: No HOSPICE: HOSPICE: No HOSPICE EVAL & TREAT: No POST DISCHARGE ORDERS: ACTIVITY ORDERS: No restrictions WEIGHT BEARING STATUS: No restrictions DIET AFTER DISCHARGE: Regular OTHER ORDERS: INCENTIVE SPIROMETRY PLS CHECKS AFTER DISCHARGE: CHECKS AFTER DISCHARGE: Check blood press - daily TREATMENT/EQUIPMENT ORDERS: ADAPTIVE EQUIPMENT NEEDED: Commode, Wheelchair Physical Therapy For: Evalulation/Treatment Occupational Therapy For: Evaluation/Treatment Speech Language Pathology For: Swallow Cognition DISCHARGE MEDICATIONS: Home Meds Reported Medications Oxycodone/Apap 5-325 (PERCOCET 5-325 MG TABLET) 1 Each Tablet, 1 TAB PO PRN Q4HRS, TAB 0 Refills 01/28/17 Warfarin Sodium (COUMADIN) 3 Mg Tablet, 1 TAB PO DAILY, #30 TAB 5 Refills 01/28/17 Paroxetine Hcl (PAROXETINE HCL) 30 Mg Tablet, 1 TAB PO DAILY, #30 TAB 2 Refills 01/28/17 Loratadine (LORATADINE) 10 Mg Tablet, 1 TAB PO DAILY, #30 TAB 5 Refills 01/28/17 Metronidazole (METRONIDAZOLE) 500 Mg Tablet, 1 TAB PO TID, TAB 07/03/15 Levofloxacin (LEVOFLOXACIN) 500 Mg Tablet, 1 TAB PO DAILY, TAB 07/03/15 Simethicone (SIMETHICONE) 80 Mg Tab.chew, 80 MG PO BID for GAS / BLOATING, TAB.CHEW 03/11/15 Acetaminophen (ACETAMINOPHEN) 500 Mg Tablet, 1 TAB PO PRN BID, #60 TAB 1 Refill 03/11/15 Ranolazine (RANEXA) 500 Mg Tab.er.12h, 1 TAB PO BID, #60 TAB 3 Refills 03/11/15 [place]-3 Fatty Acids/Fish Oil (OMEGA 3 FISH OIL SOFTGEL) 1 Each Capsule.dr, 1 EACH PO TID 03/11/15 Metoprolol Tartrate (METOPROLOL TARTRATE) 25 Mg Tablet, 1 TAB PO BID, #180 TAB 1 Refill 03/11/15 Potassium Chloride (KLOR-CON M10) 10 Meq Tab.er.prt, 1 TAB PO DAILY, #30 TAB 5 Refills 03/11/15 Furosemide (FUROSEMIDE) 40 Mg Tablet, 1 TAB PO DAILY, #30 TAB 5 Refills 03/11/15 Famotidine (FAMOTIDINE) 20 Mg Tablet, 20 MG PO HS, TAB 03/11/15 Docusate Sodium (DOCUSATE SODIUM) 100 Mg Capsule, 1 CAP PO DAILY, #30 CAP 03/11/15 Bupropion Hcl (BUPROPION HCL) 100 Mg Tablet, 100 MG PO BID 03/11/15 Atorvastatin Calcium (ATORVASTATIN CALCIUM) 40 Mg Tablet, 1 TAB PO QHS, #90 TAB 3 Refills 03/11/15 Alprazolam (ALPRAZOLAM) 0.5 Mg Tablet, 1 TAB PO TID PRN PRN for ANXIETY / AGITATION, #90 TAB 03/11/15 PARKER PINZON MD May 23, 2018 09:52
[2018-05-23] MEDS ORDERED: INFLUENZA VAX SCREEN BY RX. MC ONE (10:30)
[2018-05-23 11:00] VITALS: BP 145/60
[2018-05-23] MEDS: RANOLAZINE 500 MG TAB.ER.12H PO SCH (11:32)
[2018-05-23] MEDS: buPROPion 100 MG TABLET PO SCH (11:33)
[2018-05-23 11:35] VITALS: BP 145/59
[2018-05-23] MEDS: METOPROLOL TART IMMED RELEASE 25 MG TABLET. PO SCH (11:35)
[2018-05-23] MEDS: OMEGA-3 FATTY ACIDS/FISH OIL 1,000 MG CAPSULE. PO SCH ×2 (11:35→13:44)
[2018-05-23] MEDS: SIMETHICONE 80 MG TAB.CHEW PO SCH (11:35)
== END 2018-05-23 14:41 | DRG 189 ==
LOC: ER 13:53 → 5 NORTH 16:40
PROVIDERS: ADMIT Internal Medicine; ATTEND Internal Medicine
DX: J96.01 Acute respiratory failure with hypoxia (principal); I50.43 Acute on chronic combined systolic (congestive) and diastolic (congestive) heart failure; J98.11 Atelectasis; R47.01 Aphasia; I69.951 Hemiplegia and hemiparesis following unspecified cerebrovascular disease affecting right dominant side; I50.22 Chronic systolic (congestive) heart failure; I11.0 Hypertensive heart disease with heart failure; E78.5 Hyperlipidemia, unspecified; F41.9 Anxiety disorder, unspecified; H40.9 Unspecified glaucoma; I25.10 Atherosclerotic heart disease of native coronary artery without angina pectoris; I48.91 Unspecified atrial fibrillation; J20.9 Acute bronchitis, unspecified; K21.9 Gastro-esophageal reflux disease without esophagitis; M81.0 Age-related osteoporosis without current pathological fracture; Z66 Do not resuscitate; D64.9 Anemia, unspecified; F32.9 Major depressive disorder, single episode, unspecified; G89.29 Other chronic pain; M19.90 Unspecified osteoarthritis, unspecified site; R13.10 Dysphagia, unspecified; Z79.01 Long term (current) use of anticoagulants; Z82.49 Family history of ischemic heart disease and other diseases of the circulatory system; Z90.710 Acquired absence of both cervix and uterus; Z90.49 Acquired absence of other specified parts of digestive tract; Z88.0 Allergy status to penicillin; Z88.5 Allergy status to narcotic agent; Z88.8 Allergy status to other drugs, medicaments and biological substances
CPT/HCPCS: 36415; 71045; 80048; 81001; 83605; 83880; 84145; 84484; 85025; 85379; 85610; 87040; 87641; 90471; 90756; 93005; 94640; 94760; 96374; G0238; J1940; J7620; P9612; 99285-25; Q2035